=== PATIENT | male | born 1980 | race Caucasian/White ===

== ENCOUNTER 2020-08-13 17:18 | Emergency (ER) | payer BC, SELFPAY ==
--- NOTE | ~2020-08-13 | XR_ITS ---
EXAMINATION: XR abdomen/kub 1V DATE: 08/13/2020 20:20 INDICATION: Urolithiasis. TECHNIQUE: A supine view of the abdomen on 2 radiographs was obtained. COMPARISON: CT abdomen and pelvis 08/13/2020 FINDINGS: There are no dilated loops of bowel. There is contrast in the ureters and bladder. There is mild right hydronephrosis. IMPRESSION: 1. Mild right hydronephrosis. Reviewed, dictated and finalized at location A. 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
--- NOTE | ~2020-08-13 | CT_ITS ---
EXAMINATION: CT abdomen pelvis w con DATE: 08/13/2020 19:04 INDICATION: Right abdominal pain. TECHNIQUE: Computed tomography (CT) of the abdomen and pelvis was performed with 100 mL Omnipaque 350 intravenous contrast. Automated exposure control and iterative reconstruction technique were employe d. The dose-length product was 1466.08 mGy-cm. COMPARISON: None. FINDINGS: The visualized portions of the lung bases demonstrate mild atelectasis in lingula. No pleur al effusion. The heart size is normal. No pericardial effusion. The liver, gallbladder, and pancreas are normal. Calcifications in the spleen are consistent with old granulomatous disease. The adrenal g lands are normal. There is a delayed right-sided contrast nephrogram. There is a 2.1 cm cyst in right kidney. There is mild right hydronephrosis. There is a 3 mm stone in proximal right ureter. There is a 4 mm stone in left kidney. There is a 6 mm cyst in left kidney. There are bilateral inguinal herni as containing fat. There are no dilated loops of bowel. The appendix is normal. There are no patholog ically enlarged lymph nodes. There is no free intraperitoneal fluid. There is a small umbilical herni a containing fat. There is mild thoracolumbar spondylosis. IMPRESSION: 1. 3 mm stone in proximal right ureter with mild right hydronephrosis. 2. 4 mm nonobstructing left kidney stone. 3. Bilateral inguinal hernias and umbilical hernia containing fat. Reviewed, dictated and finalized at location A. [employer]
[2020-08-13 18:07] VITALS: BP 133/75; PULSE 78; RESP 16; TEMP 36.6; O2SAT 99
[2020-08-13 18:26] LABS: Basophils Absolute Auto 0.1 K/mm3 (0.0-0.1); Basophils Percent Auto 0.9 % (0.2-1.2); Eosinophils Percent Auto 0.3 % (0-4.4); Hematocrit 41.1 % (42.0-52.0); Hemoglobin 14.3 g/dL (14.0-18.0); Immature Granulocyte Absolute 0.07 K/mm3 (0.00-0.031); Immature Granulocyte Percent A 0.5 % (0-0.5); Lymphocytes Absolute Auto 1.57 K/mm3 (0.9-3.2); Lymphocytes Percent Auto 12.2 % (18.3-44.2); Mean Corpuscular HGB Conc 34.8 g/dl (32-36); Mean Corpuscular Hemoglobin 31.3 pg (26-34); Mean Corpuscular Volume 89.9 fl (80-100); Mean Platelet Volume 9.6 fl (7.4-10.4); Monocytes Absolute Auto 0.6 K/mm3 (0.1-0.6); Monocytes Percent Auto 4.8 % (2.6-8.5); Neutrophils Absolute Auto 10.4 K/mm3 (1.3-6.7); Neutrophils Percent Auto 81.3 % (45.5-73.1); Platelet Count Result 292 k/mm3 (150-375); Red Blood Count 4.57 M/mm3 (4.6-6.20); Red Cell Distribution Width 12.4 % (11.5-14.5); White Blood Count 12.8 K/mm3 (4.5-10.0)
[2020-08-13 18:41] LABS: Anion Gap 11 mmol/L (8-16); Blood Urea Nitrogen 16 mg/dL (9-20); Calcium 10.5 mg/dL (8.4-10.2); Carbon Dioxide 25 mmol/L (22-30); Chloride 105 mmol/L (98-107); Estimated CRCL calculation 106 ml/min; Estimated Glomerular Filt Rate > 60; Glucose 116 mg/dL (75-110); Potassium 4.2 mmol/L (3.4-5.0); Sodium 141 mmol/L (137-145)
--- NOTE | 2020-08-13 18:57 | ED.BACK ---
HPI - Back Pain/Injury General Chief Complaint: Back Pain/Injury Stated Complaint: flank/back pain, thinks kidney stone Time Seen by Provider: 08/13/20 18:34 Source: patient Mode of arrival: ambulatory Limitations: no limitations History of Present Illness HPI Narrative: This is a 40 year old male that presents to the ER for right sided flank pain since this afternoon. Reports the pain is sharp and intermittent. Associated with nausea and vomiting. Radiates to the right abdomen. Denies fever, dysuria, hematuria. Related Data Allergies Allergy/AdvReac Type Severity Reaction Status Date / Time No Known Allergies Allergy Verified 08/13/20 18:21 Review of Systems Review of Systems: Narrative: CONSTITUTIONAL: Denies fever GASTROINTESTINAL: Reports abdominal pain, nausea, vomiting. Denies diarrhea. GENITOURINARY: Denies dysuria or hematuria. MUSCULOSKELETAL: Reports back pain All systems reviewed & are unremarkable except as noted in HPI and below PMFSH Past Medical History Medical History (Updated 08/13/20 @ 20:12 by Lluvia Deutsch PA-C) History of hyperlipidemia History of hypertension Exam Narrative: Exam Narrative: GENERAL: Well-nourished, actively vomiting HEAD: Normocephalic, atraumatic. EYES: EOMI. CHEST: Clear to auscultation. No respiratory distress. No wheezes rales or rhonchi HEART: Regular rate and rhythm. No murmur heard. Normal peripheral pulses. ABDOMEN: Soft, nontender, nondistended, normal active bowel sounds. No CVA tenderness EXTREMITIES: Normal range of motion. No edema. SKIN: Warm, dry, no rash. NEURO: No focal deficits. Alert and oriented x3. PSYCH: Normal mood and affect Course Consultations Consultation #1: Spoke with Dr. Bal about patient and work-up. Will be sent home with pain medication, Flomax, and urine strainer. Patient is to follow-up in clinic. Date: 08/13/20 Time: 20:20 Vital Signs Vital signs: Vital Signs Temperature 97.8 F 08/13/20 18:07 Pulse Rate 78 08/13/20 18:07 Respiratory Rate 16 08/13/20 18:07 Blood Pressure 133/75 08/13/20 18:07 Pulse Oximetry 99 08/13/20 18:07 Temperature 97.8 F 08/13/20 18:07 Pulse Rate 78 08/13/20 18:07 Respiratory Rate 16 08/13/20 18:07 Blood Pressure 133/75 08/13/20 18:07 Pulse Oximetry 99 08/13/20 18:07 MDM - Back Pain/Injury MDM Narrative Medical decision making narrative: Patient presents to the emergency department for right-sided flank pain, nausea and vomiting. He is afebrile and nontoxic-appearing. CBC with mild leukocytosis to 12.8. Metabolic panel is without concerning findings. UA with red blood cells and 4-6 white blood cells. Patient does not have any urinary symptoms. Will send this for a culture. CT scan of the abdomen and pelvis shows a 3 mm stone of the proximal right ureter with mild right hydronephrosis. Also shows a 4 mm nonobstructing stone in the left kidney. Shows bilateral fat containing inguinal hernias. Patient was updated on case findings. Reports relief with pain medication. Spoke with Dr. Bal about patient and work-up. Will be sent home with pain medication, Flomax, and urine strainer. Patient is to follow-up in clinic. Patient is stable and felt appropriate for further outpatient evaluation. He was given warnings to return to the ER Lab Data Attestation: I reviewed the patient's lab results. Result diagrams: 08/13/20 18:19 08/13/20 18:19 Labs: Lab Results 08/13/20 08/13/20 08/13/20 Range/Units 18:19 18:19 19:14 WBC 12.8 H (4.5-10.0) K/mm3 RBC 4.57 L (4.6-6.20) M/mm3 Hgb 14.3 (14.0-18.0) g/dL Hct 41.1 L (42.0-52.0) % MCV 89.9 (80-100) fl MCH 31.3 (26-34) pg MCHC 34.8 (32-36) g/dl RDW 12.4 (11.5-14.5) % Plt Count 292 (150-375) k/mm3 MPV 9.6 (7.4-10.4) fl Immature Gran % (Auto) 0.5 (0-0.5) % Neut % (Auto) 81.3 H (45.5-73.1) % Lymph % (Auto) 12.2 L (18.3-44.2)
--- NOTE | 2020-08-13 19:10 | PC.NURSE ---
assuming care of pt at this time, received report from rosalio roblero
[2020-08-13] MEDS: ONDANSETRON INJ 4 MG/2 ML VIAL IV PUSH (19:20)
[2020-08-13] MEDS: MORPHINE SULFATE (*CRX) 4 MG/ML INJ IV PUSH (19:20)
[2020-08-13] MEDS: SODIUM CHLORIDE 0.9% IV 1,000 ML 999 ML IV CONT (19:20)
[2020-08-13 19:37] LABS: Add Urine Microscopic? YES; Appearance Urine Cloudy (Clear); Bilirubin Urine Negative (Negative); Blood Urine 3+ (Negative); Color Urine Yellow (Yellow); Glucose Urine UA Negative (Negative); Ketones Urine Negative (Negative); Leukocyte Esterase Ur Negative LEU/UL (Negative); Mucus Urine Rare /lpf; Nitrate Urine Negative (Negative); Protein Urine 1+ mg/dL (Negative); RBC Urine >75 /hpf (0-2); Specific Grav Ur 1.019 (1.001-1.035); Urobilinogen Urine Negative mg/dL (<2.0)
[2020-08-13 21:23] VITALS: BP 128/77; PULSE 70; RESP 18; O2SAT 99
== END 2020-08-13 21:25 | disposition home or self-care (01) ==
PROVIDERS: Emergency Provider Emergency Medicine; PCP Family Medicine
DX: N13.2 Hydronephrosis with renal and ureteral calculous obstruction (principal); E78.5 Hyperlipidemia, unspecified; I10 Essential (primary) hypertension; K40.20 Bilateral inguinal hernia, without obstruction or gangrene, not specified as recurrent; K42.9 Umbilical hernia without obstruction or gangrene
CPT/HCPCS: 36415; 74018; 74177; 80048; 81001; 85025; 87086; 87088; 96361; 96374; 96375; 99284; J0131; J2270; J2405; J7030; Q9967